=== PATIENT | female | born 1995 | race Caucasian/White ===

== ENCOUNTER 2016-06-11 13:57 | Emergency (ER) | payer MEDICAID, OTHER ==
[2016-06-11 14:11] VITALS: RESP 16
--- NOTE | 2016-06-11 15:29 | EDPHY ---
H & P Time Seen by Provider: 06/11/16 15:19 HPI/ROS: CHIEF COMPLAINT: Cough, myalgias HISTORY OF PRESENT ILLNESS: 20-year-old female presents to the emergency department by private vehicle complaining of cough and general myalgias over last 1 week. She denies any known ill contacts. No recent travel. Mild headache. Mild sore throat. No rash. She initially went to urgent care and had a negative strep screen. She was very upset that she did not receive antibiotics. She continues to have an ongoing cough. She denies dysphagia. She does not receive flu shots. REVIEW OF SYSTEMS: Constitutional: Subjective fevers, chills Eyes: No double or blurry vision. ENT: sore throat, nasal congestion, rhinorrhea. Respiratory: Cough, shortness of breath Cardiac: No chest pain. Gastrointestinal: No abdominal pain, vomiting or diarrhea. Genitourinary: No dysuria. Musculoskeletal: No neck or back pain. Skin: No rashes. Neurological: headache. Past Medical/Surgical History: Negative Social History: [employer] student Smoking Status: Light smoker Physical Exam: General Appearance: Alert, no distress. Tearful, temperature 36.7, 95% on room air. Eyes: Pupils equal and round. Extraocular motions are all intact. ENT: Mouth: Mucous membranes moist. Respiratory: No wheezing, rhonchi, or rales, lungs are clear to auscultation. Cardiovascular: Regular rate and rhythm. Gastrointestinal: Abdomen is soft and nontender, no masses, no rebound or guarding, bowel sounds normal. Neurological: Alert and oriented x 3, cranial nerves II through XII grossly intact Skin: Warm and dry, no rashes. Musculoskeletal: Nontender to palpate along the cervical, thoracic or lumbar spine. Neck is supple. Extremities: Full range of motion and no peripheral edema. Psychiatric: Patient is oriented X 3, there is no agitation. Constitutional: Initial Vital Signs Temperature (C) 36.7 C 06/11/16 14:08 Heart Rate 108 H 06/11/16 14:08 Respiratory Rate 16 06/11/16 14:08 Blood Pressure 117/75 06/11/16 14:08 O2 Sat (%) 95 06/11/16 14:08 O2 Delivery Mode Room Air Allergies/Adverse Reactions: No Known Allergies Allergy (Verified 06/11/16 14:13) Home Medications: Medication Instructions Recorded Minastrin 24 Fe Chewable Tab 12/18/14 HYDROcodone/CPM TUSSIONEX 5 ml PO HS PRN #120 btl 06/11/16 [Tussionex Suspension (RX)] Oseltamivir Phosphate [Tamiflu] 75 mg PO BID #10 cap 06/11/16 Medical Decision Making ED Course/Re-evaluation: 20-year-old female presents to the emergency department feeling short of breath and having lingering ongoing cough. Patient is concerned that she has pneumonia. She has never had pneumonia in the past. She did not receive a flu shot this year. Rapid influenza swab was negative. Patient was given 600 mg of ibuprofen orally. Her lungs are clear to auscultation in all fleming. Her O2 saturation is 95% on room air. The patient was concerned about pneumonia. I explained clinically I do not think she has pneumonia. After chest x-ray, however the patient declined. I think this is reasonable. O2 saturation is 95% on room air. Rapid influenza was negative, however the patient describes diffuse myalgias and dry cough and subjective fevers and chills. Clinically I think it is possible that she has influenza or other viral illness. I offered Tamiflu and the patient agreed to take this prescription. She understands that she may not have a whole lot of benefit from taking the Tamiflu since she has been sick for 1 week but she would like to take the prescription anyway. She is also requesting cough medicine to help her sleep at night. Patient will return if she feels short of breath, develops fever, or if she feels worse in any way. Differential Diagnosis: Including but not limited to influenza, bronchitis, pneumonia, viral upper respiratory infection - Data Points Laboratory Results: 06/11/16 15:25 Influenza Typ A,B (DFA) NEGATIVE FOR FLU (NEGATIVE) Medications Given: Discontinued Medications Ibuprofen (Motrin) 600 mg PO EDNOW ONE Stop: 06/11/16 15:32 Last Admin: 06/11/16 15:45 Dose: 600 mg Departure - Departure Disposition: Home, Routine, Self-Care Clinical Impression: Upper respiratory infection Qualifiers: URI type: unspecified viral URI Qualified Code(s): J06.9 - Acute upper respiratory infection, unspecified Condition: Good Instructions: Upper Respiratory Infection (ED) Additional Instructions: Adult Pain & Fever Control: We recommend Acetaminophen (Tylenol) and Ibuprofen (Motrin,Advil) for pain and fever control. When fever is high or pain severe, both drugs can be used at the same time, but at different intervals. Please note the time differences. Your dose is: Acetaminophen 1000mg every 4 to 6 hours Ibuprofen 600mg every 8 hours with food Note: do not take Acetaminophen with Hydrocodone (Vicodin, Lortab) or Oycodone (Percocet). These medications also contain Acetaminophen. No more than 3000mg of Acetaminophen should be taken in 24 hours (for an adult). Tamiflu as prescribed. Tussionex to help suppress your cough to help you sleep at night. Caution this medication will make you drowsy. Return to the emergency department if you develop recurring fever, if you feel short of breath, if you develop pain in your chest, or if you feel worse in any way. Referrals: Payal Boyce MD [Medical Doctor] - 2-3 days, if not improved ( Primary care provider lead sales consultant) Prescriptions: HYDROcodone/CPM TUSSIONEX [Tussionex Suspension (RX)] 5 ml PO HS PRN #120 btl PRN Reason: Cough, Severe Oseltamivir Phosphate [Tamiflu] 75 mg PO BID #10 cap
[2016-06-11] MEDS ORDERED: IBUPROFEN 600 MG TAB PO ONE (15:31)
[2016-06-11 17:00] VITALS: BP 105/71; PULSE 93; TEMP 98.8; O2SAT 96
== END 2016-06-11 17:01 | disposition home or self-care (01) ==
DX: J06.9 Acute upper respiratory infection, unspecified (principal); F17.200 Nicotine dependence, unspecified, uncomplicated

== ENCOUNTER 2016-11-02 00:29 | Emergency (ER) | payer MEDICAID ==
[2016-11-02 00:35] VITALS: PULSE 100
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
[2016-11-02] MEDS ORDERED: IBUPROFEN 600 MG TAB PO ONE (01:32)
[2016-11-02 01:46] VITALS: BP 118/100; RESP 18; TEMP 97.7; O2SAT 100
== END 2016-11-02 01:45 | disposition home or self-care (01) ==
DX: S90.32XA Contusion of left foot, initial encounter (principal); F17.200 Nicotine dependence, unspecified, uncomplicated; W23.0XXA Caught, crushed, jammed, or pinched between moving objects, initial encounter
CPT/HCPCS: L3260